=== PATIENT | male | born 2005 | race Caucasian/White ===

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

== ENCOUNTER 2024-03-02 18:05 | Emergency (ER) | payer SELFPAY ==
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
[2024-03-02 18:13] VITALS: BP 144/78; PULSE 64; RESP 14; TEMP 36.6; O2SAT 97
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
[2024-03-02] MEDS: acetaminophen 500 mg Tablet 1000 MG PO (19:26)
== END 2024-03-02 19:46 | disposition home or self-care (01) ==
PROVIDERS: Emergency Provider Physician Assistant
DX: S60.211A Contusion of right wrist, initial encounter (principal); W23.0XXA Caught, crushed, jammed, or pinched between moving objects, initial encounter
CPT/HCPCS: 73110; 99283

== ENCOUNTER 2025-01-22 23:11 | Emergency (ER) | payer OTHER, SELFPAY ==
[2025-01-22 23:30] VITALS: BP 118/66; PULSE 50; RESP 16; TEMP 36.5; O2SAT 100
[2025-01-23] MEDS: tetracaine 0.5% Op Soln 4 mL Btl 1 DROP EYE-RIGHT (00:33)
[2025-01-23] MEDS: fluorescein 1 mg Strip EYE-RIGHT (00:33)
--- NOTE | 2025-01-23 00:45 | ED_ITS ---
HPI - Eye Problem General: Chief complaint: Eye Problems Stated complaint: Metal in rt eye since Tuesday Time Seen by Provider: 01/22/25 23:44 History of Present Illness: Luis Keating presents to the emergency department with a foreign body in his right eye. The patient reports that he first noticed the metal object in his eye after getting out of the shower today. He has been experiencing discomfort and irritation in the affected eye. Mr. Keating states that he was wearing proper protective equipment over his eyes when the incident occurred, but somehow the metal object ricocheted and entered his eye anyway. He has been experiencing pain and discomfort since the incident. The patient attempted to work a 10-hour shift today despite the eye issue, but his boss noticed his discomfort and advised him to seek medical attention. Mr. Keating mentions that his eye has been bothering him, affecting his ability to work effectively. The patient describes the foreign body as a piece of metal, possibly originating from his truck. He reports that the object is visible in his eye and has been causing persistent irritation. Mr. Keating has not attempted any self-treatment or removal of the object prior to seeking medical care. Related Data Previous Rx's ?Medication ?Instructions ?Recorded naproxen 500 mg tablet 500 mg PO BID 10 days #20 ta bs 03/09/21 tizanidine 2 mg capsule 2 mg PO BID PRN muscle spast icity 03/09/21 7 days #7 caps oxycodone 5 mg tablet 5 mg PO Q4H PRN pain #30 tab s 04/18/22 erythromycin 5 mg/gram (0.5 %) eye 1 applic ophthalmic (eye) Q8H #3.5 01/23/25 ointment (3.5 gram tube) grams Allergies Allergy/AdvReac Type Severity Reaction Status Date / Time No Known Allergies Allergy Verified 01/22/25 23:35 Review of Systems General: Reports: 10 or more systems reviewed and unremarkable except in HPI and below PFSH ED PFSH: Medical History No significant past medical history Surgical History History of appendectomy Family History Denies family history of Clotting disorder Bleeding disorder Physical Exam Const: COMMON NORMALS: no acute distress, patient oriented x3, healthy appearing, alert and well nourished HENMT: COMMON NORMALS: normocephalic HEAD & SCALP: normocephalic Eye: COMMON NORMALS: EOMs intact bilaterally and conjunctivae normal CONJUNCTIVA: Yes conjunctivae normal SCLERA: sclerae normal CORNEA: Yes fluorescein used (Outside of the foreign body there was no other corneal abrasions.) SLIT LAMP EXAM: Yes slit lamp exam performed with fluorescein, Yes lids/lashes/lacrimal system, Yes conjunctiva/sclera and Yes cornea Cornea details: rust ring present and foreign body present Neck/C-Spine: COMMON NORMALS: full ROM and supple Resp: COMMON NORMALS: normal respiratory effort, No retractions and clear to auscultation bilaterally AUSCULTATION: clear to auscultation bilaterally Cardio: COMMON NORMALS: regular rate, regular rhythm, No gallops present (Cardio) and No murmurs present (Cardio) RATE: regular rate RHYTHM: regular rhythm GI: COMMON NORMALS: Soft to palpation and non-tender PALPATION: Yes Soft to palpation Extremity: GENERAL: Yes normal exam except as noted Neuro: COMMON NORMALS: patient oriented x3 SENSORIUM/ORIENTATION: Yes alert Skin: COMMON NORMALS: no rashes or lesions noted GENERAL SKIN EXAM: no rashes or lesions noted Procedures Foreign Body Removal Time Out Performed: yes Site: right and other (eye) Description of foreign body: other (Metal shard) Sedation/Analgesia: none and other (Tetracaine) Technique: manual removal and other (Rust ring removed with hand-held bur device) Confirmed by:: direct visualization Complications: none Post-procedure exam: awake, alert, normal BP, normal HR and normal O2 sat Course Vital Signs: Vital signs: Vital Signs Temperature 97.7 F 01/22/25 23:30 Pulse Rate 50 L 01/22/25 23:30 Respiratory Rate 16 01/22/25 23:30 Blood Pressure 118/66 01/22/25 23:30 Pulse Oximetry 100 01/22/25 23:30 MDM - Eye Problem Medical Decision Making 19-year-old male presents to the emergency department for evaluation of a foreign body in his right eye. Slit-lamp exam does demonstrate a metal piece in his right eye with a small rust ring. Fluorescein and tetracaine were applied to the eye. The foreign body was removed with the use of a 22-gauge needle. Hand-held bur device was used to remove the rust ring. Erythromycin ointment was placed in the eye after the procedure. Patient was placed on 3 times daily erythromycin ointment and told to follow-up with optometry tomorrow for further management. No radiology studies performed this visit Discharge Plan Discharge Patient Disposition: Home Clinical Impression: Foreign body Corneal abrasion Qualifiers: Encounter type: initial encounter Laterality: right Qualified Code(s): S05.01XA - Injury of conjunctiva and corneal abrasion without foreign body, right eye, initial encounter Condition: Stable Prescriptions: New erythromycin 5 mg/gram (0.5 %) ointment 1 applic ophthalmic (eye) Q8H Qty: 3.5 1RF No Action naproxen 500 mg tablet 500 mg PO BID 10 Days Qty: 20 0RF tizanidine 2 mg capsule 2 mg PO BID PRN (Reason: muscle spasticity) 7 Days Qty: 7 0RF oxycodone 5 mg tablet 5 mg PO Q4H PRN (Reason: pain) Qty: 30 0RF Discharge Orders: Discharge ED (Routine); Ordered 01/23/25 Ordered By: [employer] Discharge Diet: Advance as tolerated Discharge Activity: Limit activity as instructed Patient Instructions: Opioid Safety, Pain Management Activity Restrictions/Additional Instructions: Please make a follow-up appointment with optometry tomorrow for management of foreign body removal in your right eye. Continue the erythromycin ointment until the midwife and birth center owner discontinues it. Return to the emergency department with any new or worsening symptoms. Print Language: [employer] Coding Level of Care Code ED Department Administrator for Chris Jaquez
[2025-01-23] MEDS: erythromycin Op Oint 1 gm 1 APPLIC EYE-RIGHT (00:55)
[2025-01-23 00:56] VITALS: BP 130/71; PULSE 62; RESP 16; O2SAT 100
== END 2025-01-23 01:08 | disposition home or self-care (01) ==
PROVIDERS: Emergency Provider General Practice
DX: T15.01XA Foreign body in cornea, right eye, initial encounter (principal); W44.D9XA Other magnetic metal objects entering into or through a natural orifice, initial encounter
CPT/HCPCS: 99283; J9999